=== PATIENT | male | born 1955 | race Caucasian/White ===

== ENCOUNTER 2016-06-29 16:52 | Outpatient (CLI) | payer MEDICARE, BC | END 2016-06-29 16:53 | disposition home or self-care (01) | DX: N32.89 Other specified disorders of bladder (principal) ==

== ENCOUNTER 2019-12-21 08:00 | Outpatient (CLI) | payer MEDICARE, BC ==
--- NOTE | 2019-12-21 16:30 | XRAY Report ---
PROCEDURE: Ribs w/PA Chest LT INDICATIONS: RIB PAIN, LEFT TECHNIQUE: 2 views of the left ribs were acquired, along with a single view chest. COMPARISON: None FINDINGS: Surgical changes and devices: Median sternotomy, post CABG, and left pacemaker. Bones and chest wall: No fractures or dislocations. No suspicious bony lesions. Overlying soft tis sues appear unremarkable. Lungs and pleura: No pleural effusions or pneumothorax. Lungs demonstrate bibasilar reticulation [place] ggesting fibrotic changes. Mediastinum: Mediastinal contours appear normal. Heart size is enlarged. IMPRESSION: 1. No visible displaced rib fracture. 2. Mild cardiomegaly with post surgical change. 3. Probable bibasilar fibrotic changes. 4. No evidence of underlying chest trauma. Reviewed by: Anuja Gonsalves MD on 12/21/2019 3:29 PM [email or web address] Approved by: Anuja Gonsalves MD on 12/21/2019 3:29 PM [email or web address] Station ID: [id number]
== END 2019-12-21 23:59 | disposition home or self-care (01) ==
LOC: DI.S 08:00
PROVIDERS: ATTEND Emergency Medicine
DX: I51.7 Cardiomegaly (principal)